=== PATIENT | female | born 1990 | race Caucasian/White ===

== ENCOUNTER 2017-01-19 15:13 | Observation (INO) ==
[2017-01-19 15:45] LABS: Bilirubin,Urine Negative (Negative); Blood,Urine Negative (Negative); Clarity,Urine Cloudy (Clear); Color,Urine Yellow (Yellow); Glucose,Urine (UA) Normal (Normal); Ketones,Urine Negative (Negative); Leukocyte Esterase,Urine Moderate (Negative); Nitrite,Urine Negative (Negative); Protein,Urine 30 mg/dL (Neg-Trace); Specific Gravity,Urine 1.022 (1.010-1.025); Urobilinogen,Urine Normal (Normal)
[2017-01-19 15:47] LABS: Bacteria,Urine None Seen per hpf (None-Few); Hyaline Casts,Urine Few per lpf (None-Few); Squamous Epithelial Cell,Urine Many per lpf (None-Few); WBC,Urine TNTC per hpf (0-3)
[2017-01-19 15:51] LABS: Amphetamine Screen,Urine Negative ng/mL (Cutoff=1000); Barbiturate Screen,Urine Negative ng/mL (Cutoff=200); Benzodiazepines Screen,Urine Negative ng/mL (Cutoff=200); Cannabinoid Screen,Urine Negative ng/mL (Cutoff = 50); Cocaine Screen,Urine Negative ng/mL (Cutoff= 300); Opiate Screen,Urine Negative ng/mL (Cutoff=300); Phencyclidine Screen,Urine Negative ng/mL (Cutoff=25)
[2017-01-19 16:05] LABS: Basophils % 0.3 %; Eosinophils # 0.3 K/mcL (0.0-0.6); Eosinophils % 2.8 %; Hematocrit 41.4 % (35.3-44.9); Hemoglobin 13.6 g/dL (11.5-15.4); Immature Granulocytes % 0.3 % (0-4); Immature Platelets 2.9 % (1.1-6.1); Lymphocytes # 3.4 K/mcL (0.6-4.6); Lymphocytes % 31.3 %; Mean Corpuscular HGB Conc 32.9 g/dL (31.6-35.5); Mean Corpuscular Hemoglobin 29.6 pg (28.0-33.3); Mean Corpuscular Volume 90.2 fL (83.0-100.0); Monocytes # 0.5 K/mcL (0.0-1.3); Monocytes % 4.9 %; Neutrophils # 6.6 K/mcL (1.6-8.9); Platelet Count 289 K/mcL (140-400); Red Blood Count 4.59 M/mcL (3.82-4.97); Red Cell Distribution Width 15.1 % (11.5-14.5); Segmented Neutrophils % 60.4 %
--- NOTE | 2017-01-19 16:18 | Emergency Department Note ---
Disposition Clinical Impression: Suicidal ideation Disposition: Admitted As Inpatient Condition: Good Referrals: NONE,PCP [Primary Care Provider] - Forms: ED Satisfaction Letter Time of Disposition: 18:44 General Adult HPI - General Chief complaint: ED Psychiatric Symptoms Stated complaint: SI Time Seen by Provider: 01/19/17 15:31 Source: patient Limitations: no limitations Nursing Notes Reviewed: Yes Vital Signs Reviewed: Yes - History of Present Illness HPI Narrative: Patient developed suicidal ideation today. Has a history of suicidal ideations. No plan. No HI. Pain Scale: 0 - Related Data Home Medications Medication Instructions Recorded Confirmed Norgestimate-Ethinyl Estradiol 1 each PO DAILY 12/03/16 12/03/16 [Sprintec 28 Day Tablet] Zolpidem [Ambien] 10 mg PO HS 12/03/16 12/03/16 Previous Rx's Medication Instructions Recorded Naproxen [Naprosyn] 500 mg PO BID #30 tablet 12/03/16 Allergies Allergy/AdvReac Type Severity Reaction Status Date / Time Amoxicillin Allergy Rash Verified 01/19/17 15:15 All systems ED: reviewed and negative except as stated. Constitutional: Denies: fever, chills ENT ED: Denies: congestion Cardiovascular: Denies: chest pain, palpitations, syncope Respiratory: Denies: cough, dyspnea Gastrointestinal: Denies: abdominal pain, nausea, vomiting, diarrhea Musculoskeletal: Denies: back pain, neck pain Integumentary: Denies: rash Psychiatric: Reports: anxiety, depression, suicidal thoughts. Denies: homicidal thoughts, auditory hallucinations, visual hallucinations Past Medical History - Past Medical History Medical history: Reports: hypertension Psychiatric history: Reports: anxiety, bipolar, depression ZINC SKIMMER history: Reports: non-contributory - Social History Smoking Status: Current every day smoker Smokeless Tobacco Status: No Alcohol use: Reports: none Drug use: Reports: none Physical Exam - General Limitations: no limitations General appearance: alert, anxious - Head Head exam: atraumatic, normocephalic, normal inspection - Eye Eye exam: Present: normal appearance, PERRL, EOMI. Absent: scleral icterus - ENT ENT exam: normal exam, normal oropharynx, mucous membranes moist - Neck Neck exam: Present: normal inspection, full ROM, trachea midline. Absent: tenderness, meningismus - Chest Chest inspection: Present: normal inspection, symmetric chest wall rise. Absent : tenderness - Respiratory Respiratory exam: Present: normal lung sounds bilaterally. Absent: respiratory distress, wheezes, accessory muscle use - Cardiovascular Cardiovascular exam: Present: regular rate, normal rhythm, normal heart sounds - Abdominal Exam Abdominal exam: Present: soft, Non-Tender - Extremities Exam Extremities exam: Present: normal inspection, full ROM, normal capillary refill. Absent: tenderness, pedal edema - Neurological Exam Neurological exam: Present: alert, oriented X3 - Psychiatric Psychiatric exam: Present: anxious, suicidal ideation - Skin Skin exam: Present: warm, dry, intact, normal color. Absent: rash, cyanosis Course Course Narrative: She states that she has had these thoughts before but they are more severe today than she has ever had before. She denies a plan. She states that she does have a history of bipolar, borderline personality disorder, depression and anxiety. She recently had a baby approximately 9 months ago. Patient states that she is on no medication currently. She denies any drug use or alcohol use. She states that she would like to speak to a counselor while she is here. She denies any self-harm. She denies any HI. She denies any visual or auditory hallucinations. She states that her suicidal ideation is stemming from an argument she has had with her boyfriend. Patient is calm and resting in bed with no complaints. Lung sounds are clear heart sounds normal abdomen is soft and nontender. We will get a basic workup on patient and have her seen by [facility]. - Reevaluation(s) Reevaluation #1: Patient is being placed by one day. She is pink slipped. She did require 1 dose of Ativan while she was here. She states that she was very anxious. She is resting comfortably at this time. There is no bacteria seen on patient's UA. She did have many WBCs however there are also many squamous cells. We will send this for culture. Time: 18:41 Vital Signs Temperature 98.9 F 01/19/17 15:15 Pulse Rate 89 01/19/17 15:15 Respiratory Rate 20 01/19/17 15:15 Blood Pressure 151/96 01/19/17 15:15 O2 Sat by Pulse Oximetry 96 01/19/17 15:15 Temperature 98.5 F 01/19/17 23:47 Pulse Rate 65 01/20/17 07:24 Respiratory Rate 16 01/20/17 07:24 Blood Pressure 106/66 10/16/17 07:24 O2 Sat by Pulse Oximetry 96 01/20/17 07:24 Oxygen Delivery Oxygen Delivery Room Air Medical Decision Making - Medical Records Medical records reviewed: Yes I reviewed the patient's medical records. - Lab Data Lab results reviewed: Yes I reviewed the patient's lab results. Result diagrams: 01/19/17 15:58 01/19/17 15:58 Lab Results 01/19/17 01/19/17 01/19/17 Range/Units 15:37 15:37 15:58 WBC 10.9 (4.3-11.1) K/mcL RBC 4.59 (3.82-4.97) M/mcL Hgb 13.6 (11.5-15.4) g/dL Hct 41.4 (35.3-44.9) % MCV 90.2 (83.0-100.0) fL MCH 29.6 (28.0-33.3) pg MCHC 32.9 (31.6-35.5) g/dL RDW 15.1 H (11.5-14.5) % Plt Count 289 (140-400) K/mcL MPV 10.0 (9.4-12.4) fL Immature Gran % 0.3 (0-4) % Seg Neutrophils % 60.4 % Lymphocytes % 31.3 % Monocytes % 4.9 % Eosinophils % 2.8 % Basophils % 0.3 % Neutrophils # 6.6 (1.6-8.9) K/mcL Lymphocytes # 3.4 (0.6-4.6) K/mcL Monocytes # 0.5 (0.0-1.3) K/mcL Eosinophils # 0.3 (0.0-0.6) K/mcL Basophils # 0.0 (0.0-0.2) K/mcL Immature Plt Fraction 2.9 (1.1-6.1) % Sodium (136-145) mEq/L Potassium (3.5-4.5) mEq/L Chloride (98-109) mEq/L Carbon Dioxide (19-29) mEq/L BUN (7-20) mg/dL Creatinine (0.57-1.11) mg/dL Est GFR ( Amer) (> 60) Est GFR (Non-Af Amer) (> 60) BUN/Creatinine Ratio (6-26) Glucose (70-99) mg/dL Calculated Osmolality (280-300) Calcium (8.6-10.8) mg/dL Urine Color Yellow (Yellow) Urine Clarity Cloudy A (Clear) Urine pH 6.0 (5.0-8.0) pH Units Ur Specific [place] 1.022 (1.010-1.025) Urine Protein 30 H (Neg-Trace) mg/dL Urine Glucose (UA) Normal (Normal) mg/dL Urine Ketones Negative (Negative) mg/dL Urine Blood Negative (Negative) Urine Nitrite Negative (Negative) Urine Bilirubin Negative (Negative) Urine Urobilinogen Normal (Normal) mg/dL Ur Leukocyte Esterase Moderate H (Negative) Urine Microscopic RBC 5-15 H (0-3) per hpf Urine Microscopic WBC TNTC H (0-3) per hpf Ur Squamous Epith Cells Many H (None-Few) per lpf Urine Bacteria None Seen (None-Few) per hpf Hyaline Casts Few (None-Few) per lpf Salicylates (15-30) mg/dL Urine Opiates Screen Negative (Ddtlmd=246) ng/mL Acetaminophen (10-30) mcg/mL Ur Barbiturates Screen Negative (Quxxfi=163) ng/mL Ur Phencyclidine Scrn Negative (Cutoff=25) ng/mL Ur Amphetamines Screen Negative (Zxrant=8174) ng/mL U Benzodiazepines Scrn Negative (Apfskk=664) ng/mL Urine Cocaine Screen Negative (Cutoff= 300) ng/mL U Marijuana (THC) Screen Negative (Cutoff = 50) ng/mL Ethyl Alcohol (0-10) mg/dL 01/19/17 Range/Units 15:58 WBC (4.3-11.1) K/mcL RBC (3.82-4.97) M/mcL Hgb (11.5-15.4) g/dL Hct (35.3-44.9) % MCV (83.0-100.0) fL MCH (28.0-33.3) pg MCHC (31.6-35.5) g/dL RDW (11.5-14.5) % Plt Count (140-400) K/mcL MPV (9.4-12.4) fL Immature Gran % (0-4) % Seg Neutrophils % % Lymphocytes % % Monocytes % % Eosinophils % % Basophils % % Neutrophils # (1.6-8.9) K/mcL Lymphocytes # (0.6-4.6) K/mcL Monocytes # (0.0-1.3) K/mcL Eosinophils # (0.0-0.6) K/mcL Basophils # (0.0-0.2) K/mcL Immature Plt Fraction (1.1-6.1) % Sodium 138 (136-145) mEq/L Potassium 4.1 (3.5-4.5) mEq/L Chloride 109 (98-109) mEq/L Carbon Dioxide 22 (19-29) mEq/L BUN 7 (7-20) mg/dL Creatinine 0.74 (0.57-1.11) mg/dL Est GFR ( Amer) > 60 (> 60) Est GFR (Non-Af Amer) > 60 (> 60) BUN/Creatinine Ratio 9 (6-26) Glucose 81 (70-99) mg/dL Calculated Osmolality 283 (280-300) Calcium 9.0 (8.6-10.8) mg/dL Urine Color (Yellow) Urine Clarity (Clear) Urine pH (5.0-8.0) pH Units Ur Specific [place] (1.010-1.025) Urine Protein (Neg-Trace) mg/dL Urine Glucose (UA) (Normal) mg/dL Urine Ketones (Negative) mg/dL Urine Blood (Negative) Urine Nitrite (Negative) Urine Bilirubin (Negative) Urine Urobilinogen (Normal) mg/dL Ur Leukocyte Esterase (Negative) Urine Microscopic RBC (0-3) per hpf Urine Microscopic WBC (0-3) per hpf Ur Squamous Epith Cells (None-Few) per lpf Urine Bacteria (None-Few) per hpf Hyaline Casts (None-Few) per lpf Salicylates < 5.0 L (15-30) mg/dL Urine Opiates Screen (Efcmqr=747) ng/mL Acetaminophen < 1.0 L (10-30) mcg/mL Ur Barbiturates Screen (Oyghvq=846) ng/mL Ur Phencyclidine Scrn (Cutoff=25) ng/mL Ur Amphetamines Screen (Mafirb=5369) ng/mL U Benzodiazepines Scrn (Vkwxux=427) ng/mL Urine Cocaine Screen (Cutoff= 300) ng/mL U Marijuana (THC) Screen (Cutoff = 50) ng/mL Ethyl Alcohol < 10 (0-10) mg/dL Attestation Statement - Attestation Attestation: I examined this patient and my medical decision-making was reviewed with the Resident Physician. I agree with the documented findings, disposition and treatment plan as described except to the extent set forth below. 26 yo female presents to ED with SI. Developed today after difficulties with relationship with significant other. Denies plan. Never attempted in the past. Denies HI, auditory or visual hallucinations. Pt medically cleared and seen by behavioral health. Pt will be placed in psychiatric facility.
[2017-01-19 16:20] LABS: BUN/Creatinine Ratio 9 (6-26); Blood Urea Nitrogen 7 mg/dL (7-20); Carbon Dioxide 22 mEq/L (19-29); Chloride 109 mEq/L (98-109); Glucose 81 mg/dL (70-99); Osmolality,Calculated 283 (280-300); Potassium 4.1 mEq/L (3.5-4.5); Sodium 138 mEq/L (136-145); eGFR For African Americans > 60 (> 60); eGFR For Non-African Americans > 60 (> 60)
[2017-01-19 16:22] LABS: Acetaminophen < 1.0 mcg/mL (10-30); Ethanol < 10 mg/dL (0-10); Salicylate < 5.0 mg/dL (15-30)
[2017-01-19] MEDS ORDERED: *HR* LORazepam 0.5 MG TABLET PO ONE (17:53)
[2017-01-19] MEDS ORDERED: hydrOXYzine pamoate 25 MG CAPSULE PO STA (21:47)
[2017-01-19] MEDS: Nicotine 14 MG PATCH.TD24 TD SCH (22:11)
[2017-01-20] MEDS ORDERED: *HR* LORazepam 1 MG TABLET PO ONE (03:33)
--- NOTE | 2017-01-20 05:14 | Emergency Department Note ---
START Narrative - START START: This patient was signed out to me at shift change from Dr. Hogan and Dr. Sen London. Patient further notes for complete details of the history and physical examination. Patient presented with suicidal ideation. She has been evaluated by the psychiatry service and is awaiting placement as there are currently no beds available here. Patient was given Ativan 1 mg by mouth during the night for complaint of increased anxiety. No other problems or complaints. At shift change she is being signed out to the oncoming dayshift physician, Dr. Naida London. Patient still awaiting psychiatric bed placement.
--- NOTE | 2017-01-20 07:06 | Emergency Department Note ---
START Narrative - START START: acccepted sign out from night team. [facility] has been accepted by [facility]. Patient is sleeping and stable at bedside.
[2017-01-20] MEDS ORDERED: Acetaminophen 325 MG TABLET PO PRN (16:44)
[2017-01-20] MEDS ORDERED: Mag Hydrox/Al Hydrox/Simeth 30 ML UDC PO PRN (16:44)
[2017-01-20] MEDS ORDERED: Haloperidol Lactate 5 MG/ML VIAL IM PRN (16:44)
[2017-01-20] MEDS ORDERED: *HR* LORazepam 2 MG/ML VIAL IM PRN (16:44)
[2017-01-20] MEDS ORDERED: *HR* LORazepam 1 MG TABLET PO PRN (16:44)
[2017-01-20] MEDS ORDERED: hydrOXYzine pamoate 25 MG CAPSULE PO PRN (16:44)
[2017-01-20] MEDS: Nicotine 14 MG PATCH.TD24 TD SCH (18:24)
[2017-01-20] MEDS ORDERED: MOM Conc 10 ML UD.LIQ PO PRN (21:00)
[2017-01-21] MEDS ORDERED: NORGESTIMATE ETHINYL ESTRADIOL PO SCH (09:00)
[2017-01-21] MEDS: Nicotine 14 MG PATCH.TD24 TD SCH (09:06)
[2017-01-21 10:13] VITALS: BP 132/91
[2017-01-21] MEDS ORDERED: ARIPiprazole 2 MG TABLET PO SCH (11:45)
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
--- NOTE | 2017-01-21 16:46 | Electrocardiograph Report ---
[facility] Test Date: 2017-01-19 Pat Name: Angeline Love Department: 103 Room: 1A43 Gender: F Telecommunications Manager: TERI : 1990 Requested By: Fermin Moreno Order Number: [id number] Reading MD: Steve Nails DO Measurements Intervals [place] Rate: 53 P: 46 WI: 112 QRS: -1 QRSD: 104 T: 4 QT: 454 QTc: 436 Interpretive Statements SINUS BRADYCARDIA WITH SHORT WI INTERVAL MINIMAL VOLTAGE CRITERIA FOR LVH, CONSIDER NORMAL VARIANT [MEETS CRITERIA IN ONE OF: R(aVL), S(V1), R(V5), R(V5/V6)+S(V1)] Electronically Signed On 01-21-2017 16:45:19 EDT by Steve Nails DO
== END 2017-01-21 16:45 | disposition home or self-care (01) ==
LOC: EMEROO 15:13 → 1ANU 01-20 14:41 → INTOOBSV 01-20 14:41 → 1ANU 01-20 15:43
PROVIDERS: ADMIT Student in an Organized Health Care Education/Training Program; ATTEND Student in an Organized Health Care Education/Training Program